=== PATIENT | female | born 1990 | race Caucasian/White ===

== ENCOUNTER → 2024-01-04 | Outpatient (CLI) | payer OTHER ==
[2024-01-04 15:07] LABS: PLATELET COUNT, AUTOMATED 307 10^3/uL (150-450)
[2024-01-04 15:22] LABS: INR 0.93; PROTHROMBIN TIME 12.2 SECONDS (12.5-14.5)
== END ==
LOC: M LAB 14:29
PROVIDERS: ATTEND Physician Assistant
DX: Z01.818 Encounter for other preprocedural examination (principal)